=== PATIENT | female | born 1980 | race Caucasian/White ===

== ENCOUNTER 2019-10-12 16:12 | Emergency (ER) | payer OTHER ==
[~2019-10-12] VITALS: Ht 162.6 cm; Wt 90.5 kg
[2019-10-12 16:16] VITALS: BP 151/94
[2019-10-12] MEDS ORDERED: ALBU8HFA IH (16:26)
[2019-10-12] MEDS ORDERED: IBUPROFEN 600 MG TABLET PO ONE (18:00)
== END 2019-10-12 18:27 | disposition home or self-care (01) ==
LOC: EMS 16:12
DX: S20.219A Contusion of unspecified front wall of thorax, initial encounter (principal); J45.909 Unspecified asthma, uncomplicated; V49.9XXA Car occupant (driver) (passenger) injured in unspecified traffic accident, initial encounter; Y93.89 Activity, other specified; Y92.89 Other specified places as the place of occurrence of the external cause; Y99.8 Other external cause status

== ENCOUNTER 2022-01-07 08:35 | Emergency (ER) | payer MEDICAID ==
[~2022-01-07] VITALS: Ht 170.2 cm; Wt 90.9 kg
[~2022-01-07 08:35] MED LIST: ALBU8HFA IH
[2022-01-07] MEDS: TETANUS/DIPHTHERIA TOXOID [TDVAX] [ADULT] 0.5 ML VIAL IM. ONE (11:58)
[2022-01-07] MEDS: TraMADol HCL 50 MG TABLET PO ONE (11:59)
[2022-01-07] MEDS: SODIUM CHLORIDE 0.9% 250 ML IRRIG SOLUTION BOTTLE IRRIG ONE (11:59)
[2022-01-07 13:05] VITALS: BP 174/106
== END 2022-01-07 13:17 | disposition home or self-care (01) ==
LOC: EMS 08:35
DX: S01.21XA Laceration without foreign body of nose, initial encounter (principal); J45.909 Unspecified asthma, uncomplicated; R42 Dizziness and giddiness; Z91.040 Latex allergy status; Z88.0 Allergy status to penicillin; X58.XXXA Exposure to other specified factors, initial encounter; Y93.89 Activity, other specified; Y92.89 Other specified places as the place of occurrence of the external cause; Y99.8 Other external cause status
CPT/HCPCS: 12011; 70450; 70486; 90471; 90714; 99284

== ENCOUNTER 2022-06-09 10:43 | Emergency (ER) | payer MEDICAID ==
[~2022-06-09] VITALS: Ht 165.1 cm; Wt 99.2 kg
[2022-06-09 10:46] VITALS: BP 132/82
[2022-06-09] MEDS ORDERED: LIDOCAINE 1% 10 ML VIAL SQ ONE (11:15)
[2022-06-09] MEDS ORDERED: CLINDAMYCIN PHOS 150 MG/ML 4 ML VIAL IM ONE (11:30)
[2022-06-09] MEDS ORDERED: CLIN-142 PO (11:32)
[2022-06-09] MEDS ORDERED: CLINDAMYCIN HCL 150 MG CAPSULE PO ONE (11:45)
== END 2022-06-09 11:53 | disposition home or self-care (01) ==
LOC: EMS 10:43
DX: L02.414 Cutaneous abscess of left upper limb (principal); J45.909 Unspecified asthma, uncomplicated; Z88.0 Allergy status to penicillin; Z91.040 Latex allergy status
CPT/HCPCS: 99283; 10060; J3490

== ENCOUNTER 2022-06-12 06:58 | Emergency (ER) | payer MEDICAID ==
[~2022-06-12] VITALS: Ht 165.1 cm; Wt 98.2 kg
[~2022-06-12 06:58] MED LIST changes: +CLIN-142 PO
[2022-06-12 07:13] VITALS: BP 121/62
[2022-06-12] MEDS ORDERED: BACITRACIN 0.9 GM PACKET OINTMENT TP ONE (07:45)
== END 2022-06-12 08:14 | disposition home or self-care (01) ==
LOC: EMS 06:58
DX: L02.414 Cutaneous abscess of left upper limb (principal); J45.909 Unspecified asthma, uncomplicated; Z88.0 Allergy status to penicillin; Z91.040 Latex allergy status
CPT/HCPCS: 99282; 99283